=== PATIENT | female | born 1960 | race African-American/Black ===

== ENCOUNTER 2017-12-31 07:23 | Day surgery (SDC) | payer MEDICARE ==
[~2017-12-31] VITALS: Ht 160 cm; Wt 90.3 kg
[~2017-12-31 07:23] MED LIST: ALBU8I; ASPI325T PO; ATOR10 PO; ENAL20TA81 PO; HYDR10TA16 PO; LASI20TA PO; OMEP20TA PO; SOMA350T PO; XANA2TAB2 PO
[2017-12-31] MEDS ORDERED: IOHEXOL 350 MG/ML 100 ML BTL (for Cath Lab) OTHER ONE (07:24)
[2017-12-31] MEDS ORDERED: NS 1000P @30 MLS/HR (KVO) IV SCH (08:00)
[2017-12-31 08:12] LABS: AUTOMATED NEUTROPHIL # 3.8 TH/MM3 (1.8-7.7); BASOPHIL % 0.7 % (0.0-2.0); EOSINOPHIL # 0.1 TH/MM3 (0-0.4); HEMOGLOBIN 13.6 GM/DL (11.6-15.3); LYMPH % 29.8 % (9.0-44.0); LYMPHOCYTE # 1.9 TH/MM3 (1.0-4.8); MEAN CELL VOLUME 96.4 FL (80.0-100.0); MEAN CORPUSCULAR HGB CONC 33.2 % (32.0-36.0); MEAN PLATELET VOLUME 8.2 FL (7.0-11.0); MONO % 6.2 % (0.0-8.0); MONOCYTE # 0.4 TH/MM3 (0-0.9); NEUT % 61.3 % (16.0-70.0); PLATELET COUNT 195 TH/MM3 (150-450); RED BLOOD COUNT 4.25 MIL/MM3 (4.00-5.30); RED CELL DISTRIBUTION WIDTH 13.1 % (11.6-17.2); WHITE BLOOD COUNT 6.3 TH/MM3 (4.0-11.0)
[2017-12-31] MEDS ORDERED: SOMA350T PO (08:23)
[2017-12-31] MEDS ORDERED: ENAL20TA PO (08:23)
[2017-12-31] MEDS ORDERED: CLON0.1T PO (08:23)
[2017-12-31] MEDS ORDERED: VENTAER INH (08:23)
[2017-12-31] MEDS ORDERED: NIFE60TA58 PO (08:23)
[2017-12-31] MEDS ORDERED: METO-309 PO (08:23)
[2017-12-31] MEDS ORDERED: HYDR1SOL6 PO (08:23)
[2017-12-31] MEDS ORDERED: XANA2TAB2 PO (08:23)
[2017-12-31] MEDS ORDERED: IBUP-232 PO (08:23)
[2017-12-31] MEDS ORDERED: ASPI81TA23 PO (08:23)
[2017-12-31] MEDS ORDERED: LIPI10TA PO (08:23)
[2017-12-31] MEDS ORDERED: GUAI1LIQ13 PO (08:23)
[2017-12-31] MEDS ORDERED: HEPARIN-NS/PF FLUSH BAG 2,000 ML IV FLUSH ONE (08:25)
[2017-12-31] MEDS ORDERED: MIDAZOLAM HCL 2 MG/2 ML VIAL ONE (08:25)
[2017-12-31 08:26] VITALS: BP 151/92; PULSE 66; RESP 18; TEMP 97.9; O2SAT 99
[2017-12-31] MEDS ORDERED: VERAPAMIL HCL 5 MG/2 ML VIAL ONE (08:26)
[2017-12-31] MEDS ORDERED: HEPARIN SODIUM - IV 10,000 UNITS/10 ML VIAL ONE (08:26)
[2017-12-31] MEDS ORDERED: NITROGLYCERIN INJ 5 ML ONE (08:26)
[2017-12-31 08:33] LABS: BICARBONATE 30.2 MEQ/L (21.0-32.0); CALCIUM 9.1 MG/DL (8.5-10.1); CREATININE 0.78 MG/DL (0.50-1.00)
[2017-12-31] MEDS ORDERED: ONDANSETRON HCL 4 MG/2 ML VIAL ONE (09:12)
[2017-12-31] MEDS ORDERED: CLOPIDOGREL 300 MG TAB ONE (09:48)
--- NOTE | 2017-12-31 09:58 | CATHPROC ---
[facility] HIS Report Study Information Study Number Admission Scheduled Start Study Start [id number] Dec 31 2017 7:23AM 12/31/2017 Dec 31 2017 8:22AM [facility] Cardiac Catheterization Admit Source Facility Department Other [facility] - [facility] Assistant Navigator Physician and Clinical Staff Initial Vincent Mckeon Electrical High Tension Tester Tonie Ritchie RN Recorder Maya Huang,RT(R) Scrub Evelin SalgadoRT(R) (BS) Procedures Performed Procedure Location (Site) Vessel Name Coronary Angiograms LCA Left Coronary Coronary Angiograms RCA Right Coronary L Heart Cath PTCA DIAG Ost Left Coronary Wire insertion Radial (right) Radial Art. Equipment Time Veterinary Dentist Description Size Mfg Part Number Used/Scraped WIRE, WHISPER W/HYDROCOAT [id number] 09:19 [employer] 190CM Used 190CM *[id number] WIRE, WHISPER W/HYDROCOAT [id number] 09:19 [employer] 190CM Used 190CM *[id number] TRANSDUCER, TRUWAVE [id number] 08:36 [employer]UDE[employer] * Used [facility] *[id number] TIG 4.0 GUIDE CATHETER [id number] 09:19 [employer]ctive Systems SCIENTIFIC FR 6 Used CONVEY *[id number] 08:36 [email or web address] PACK, CCL CUSTOM * Used *[id number] 08:36 [email or web address] SUPPORT, ARTERIAL ADULT [id number] *[id number] Used [id number] 08:36 [employer] PACER PEN, SKIN DUAL W/ RULER * Used *[id number] BALLOON, 2.25 X 12MM NC [id number] 09:31 [employer] 12MM Used EUPHORA *[id number] 09:27 [employer] BALLOON, 2.5 X 10MM EUPHORA 10MM Used *[id number] BALLOON, 2.5 X 12MM NC [id number] 09:39 [employer] 12MM Used EUPHORA *[id number] 09:28 [employer] 30 BATOOL INDEFLATOR Used *[id number] BAND, RADIAL COMPRESSION TR [id number] 09:50 [employer] 24CM Used SHORT 24 *[id number] 08:36 [employer] WIRE, EXCHANGE 260CM 3MMJ 260CM Used *[id number] 08:36 NAMIC MANIFOLD, 4 PORT * Used *[id number] 08:36 NAM[employer] TUBING, HIGH PRESSURE 20" 20" Used *[id number] 08:36 [employer] OMNIPAQUE, 350 MG, 150ML 150ML [id number] Used [id number] 08:36 [employer],WARM AIR CCL * Used *[id number] CATHETER, FR5 OPTITORQUE [id number] 09:12 [employer] FR 5 Used RADIAL TIG 4.0 *[id number] SHEATH, FR6 TRANSRADIAL [id number] 08:36 [employer] FR 6 Used SLENDER 10CM *[id number] History: Current Medications Medication Dosage/Unit Route Frequency Last Date/Time Taken LIPITOR LOPRESSOR ASA CLONIDINE VASOTEC History: Allergies Allergy Reaction No Known Allergies History: Risk Factors Family History of Hypertension Dyslipidemia Previous TX Premature CAD Yes Yes No No Prior Valve Prior PCI Prior PCIDate Prior CABG Surgery No Yes 11/08/2011 No Cerebrovascular Peripheral Artery Chronic Lung On Dialysis Diabetes Disease Disease Disease No No Yes No No History: Symptoms/Diagnosis Selection Items Chest pain SOB History: Stress Tests Stress or Imaging Studies Performed Yes Standard Exercise Stress Test No Stress Echo No Stress Test SPECT Stress Test SPECT Result Stress Test SPECT Ischemia Risk/Extent Yes Positive Intermediate Stress Test CMR No Cardiac CTA Coronary Calcium Score No No History: Other Current Smoker Method Yes Cigarettes Labs Hgb (g/dl) Hct (%) WBC (l/cumm) Platelets (thousands) 11.60-17.00 35.00-51.00 4.00-11.00 150.00-450.00 13.6 41 6.3 195 Glucose (mg/dl) BUN (mg/dl) Creatinine (mg/dl) BUN:Creatinine (1:x) 74.00-106.00 7.00-18.00 0.50-1.30 10.00-20.00 80 8 0.7 11.4 Na (meq/l) K (meq/l) 136.00-145.00 3.50-5.10 143 3.9 CPK-MB (ng/ML) 0.50-3.60 Not Drawn Medication Medication Total Dose (Bolus/Oral) Medication Total Dosage/Unit 1% XYLOCAINE 5 mL FENTANYL 25 mcg HEPARIN 3000 units PLAVIX 600 mg RADIAL COCKTAIL 5 mL (Bolus) VERSED 1 mg ZOFRAN 4 mg Medications (Bolus/Oral) Medication Time Given Dosage/Unit Administered By Reason VERSED 12/31/2017 9:02:58 AM 1 mg Tonie Ritchie 1 mg VERSED given in lab by Tonie Ritchie RN in Left Antecubital via Peripheral IV. Ordered by Vincent Griffiths. 1% XYLOCAINE 12/31/2017 9:03:29 AM 5 mL Vincent Jaramillo 5 mL 1% XYLOCAINE given in lab by Vincent Jaramillo in Right Radial via Subcutaneous. Ordered by Vincent Jaramillo. Ntg 200mcg Verapamil 2.5mg Heparin RADIAL COCKTAIL 12/31/2017 9:07:58 AM 5 mL (Bolus) Vincent Jaramillo 2500U 5 mL (Bolus) RADIAL COCKTAIL given in lab by Vincent Jaramillo in Right Radial via Radial. Using [Solutio n Name]. Ordered by Vincent Jaramillo. Reason: Ntg 200mcg Verapamil 2.5mg Heparin 2500U. FENTANYL 12/31/2017 9:11:21 AM 25 mcg Tonie Ritchie 25 mcg FENTANYL given in lab by Tonie Ritchie RN in Left Antecubital via Peripheral IV. Ordered by Vincent Jaramillo. ZOFRAN 12/31/2017 9:13:28 AM 4 mg Tonie Ritchie 4 mg ZOFRAN given in lab by Tonie Ritchie RN in Left Antecubital via Central IV. Ordered by Vincent Jaramillo. HEPARIN 12/31/2017 9:19:06 AM 3000 units Tonie Ritchie 3000 units HEPARIN given in lab by Tonie Ritchie RN in Left Antecubital via Peripheral IV. Ordered by Vincent Jaramillo. PLAVIX 12/31/2017 9:51:12 AM 600 mg Tonie Ritchie 600 mg PLAVIX given in lab by Tonie Ritchie RN via Oral. Ordered by Vincent Jaramillo. Medication (Drip) Medication Time Given Dosage/Unit Concentration/Unit Diluent (ml) Solution IV Solutions 12/31/2017 8:26:15 AM 50 mL (IV) NaCl .9 IV Solutions given in lab by Tonie Ritchie RN in Left Antecubital via Peripheral IV. Pump/Drip Eduardo w using NaCl .9. Initial Case Assessment Cardiovascular HR Rhythm NIBP Chest Pain 75 SR 146/93 0 Edema Present Skin color Skin None Normal Warm Dry Circulatory - Right Pulses Dorsalis Pedis Femoral Radial 1 2 2 Scale (0,1,2,3,4,d) Scale (0,1,2,3,4,d) Neurological State Oriented to time-place- Alert Moves all extremities person Respiration - General Respiration Rate SpO2 (%) (B/min) 10 98 Chronological Log Time Study Chronological Log 8:25:03 Patient arrived via Bed. 8:25:07 Patient Name, D.O.B, / Armband Verified By R.N. 8:25:07 Consent signed by the physician and the patient and verified by the Ssn/Ssbn Assistant Navigator staff. 8:25:10 Pre-op and post- op instructions given; patient acknowledges understanding of instructions. 8:25:11 Verbal Stimulation=2 Physical Stimulation=2 Airway=2 Respiration=2 TOTAL=8. (0=absent, 1=li mited, 2=present) 8:25:34 Presedation assessment performed by Ssn/Ssbn Assistant Navigator RN. 8:25:35 Allens test performed on the right radial and ulnar artery. 8:25:38 Patient has been NPO for More than 6Hrs. 8:26:08 Skin Breakdown- none per pt 8:26:11 Patient Warmer Placed on the Table. 8:26:12 Jovanna Prominences Protected 8:26:14 A # 20 IV was noted in the Antecubital (left). Grade = 0 8:26:15 IV Solutions given in lab by Tonie Ritchie, RN in Left Antecubital via Peripheral IV. Pum p/Drip Flow using NaCl .9. 8:26:16 History and physical on the chart or being dictated. Assessment: Initial Case, HR=75 BPM, Rhythm=SR, AWLD=484/93 mmhg, Chest Pain=0, Edema=None, Col or=Normal, Skin = Warm, Dry 8:26:18 Right Pulses: Garry Ped=1, Femoral=2, Radial=2 Neurological: State=Alert, Ox3, BO Respiration: Resp=10 B/min, SpO2=98 % Vitals capture started with the following parameters, Patient=Adult, Interval=5 min, Initial Pr ewnjoj=220 mmHg, 8:27:57 Deflation Rate=5 mmHg, Cuff placed on Unknown 8:28:35 HR=75 bpm, HOFS=327/93 mmhg, SpO2=98.0 %, Resp=10 B/min, Pain=0, Jennifer=10, Hubbard=2 8:32:28 Reference ECG taken 8:33:34 HR=71 bpm, JMFP=629/89 mmhg, SpO2=98.0 %, Resp=9 B/min, Pain=0, Jennifer=10, Hubbard=2 8:36:50 Right Radial and right groin prepped with 2% chlorhexidine, and draped after a 3 min. waitin g time. 8:38:36 HR=68 bpm, BVOU=643/88 mmhg, SpO2=99.0 %, Resp=15 B/min, Pain=0, Jennifer=10, Hubbard=2 8:38:40 MD paged 8:39:00 MD responded 8:40:50 Pressure channel 1 [address] 8:42:51 Dr. Jaramillo responded with 10 minutes. 8:43:35 HR=70 bpm, FPZD=350/98 mmhg, SpO2=98.0 %, Resp=16 B/min, Pain=0, Jennifer=10, Hubbard=2 8:48:36 HR=75 bpm, IRPA=459/97 mmhg, SpO2=97.0 %, Resp=17 B/min, Pain=0, Jennifer=10, Hubbard=2 8:53:33 HR=74 bpm, EVRW=091/99 mmhg, SpO2=96.0 %, Resp=16 B/min, Pain=0, Jennifer=10, Hubbard=2 8:56:42 MD arrived. 8:59:21 HR=58 bpm, ZHJI=927/91 mmhg, SpO2=97.0 %, Resp=14 B/min, Pain=0, Jennifer=10, Hubbard=2 9:02:58 1 mg VERSED given in lab by Tonie Ritchie, AD in Left Antecubital via Peripheral IV. Order ed by Vincent Jaramillo. Time Out. Correct patient, correct procedure, correct physician, power injector not loaded with contrast with surgical 9:03:09 team present. Time Out Concurred by MD and individual staff in procedure. 9:03:25 Case Start 9:03:29 5 mL 1% XYLOCAINE given in lab by Vincent Jaramillo in Right Radial via Subcutaneous. Ordered by Vincent Jaramillo. 9:03:37 HR=60 bpm, CSWV=691/92 mmhg, SpO2=98.0 %, Resp=15 B/min, Pain=0, Jennifer=10, Hubbard=2 9:07:21 Access site was Right Radial Artery. A SHEATH, FR6 TRANSRADIAL SLENDER 10CM FR 6 was advanced into the Radial (right) using the Corinne pretty 9:07:39 technique. 5 mL (Bolus) RADIAL COCKTAIL given in lab by Vincent Jaramillo in Right Radial via Radial. Using [So lution Name]. Ordered 9:07:58 by Vincent Jaramillo. Reason: Ntg 200mcg Verapamil 2.5mg Heparin 2500U. A CATHETER, FR5 OPTITORQUE RADIAL TIG 4.0 FR 5 was advanced over a wire. OMNIPAQUE, 350 MG, 150M L 150ML 9:08:37 was used for injections. 9:08:42 HR=78 bpm, COSM=062/83 mmhg, SpO2=96.0 %, Resp=19 B/min, Pain=0, Jennifer=10, Hubbard=2 9:10:06 The LCA was injected and visualized at various angles. OMNIPAQUE, 350 MG, 150ML 150ML used. Recorded Pressure: Ao, HR=78, Condition=Condition 1 9:10:27 (Aorta) Ao 114/73/91 9:11:21 25 mcg FENTANYL given in lab by Tonie Ritchie RN in Left Antecubital via Peripheral IV. O rdered by Vincent Jaramillo. Recorded Pressure: LV, HR=81, Condition=Condition 1 9:12:05 (Left Ventricle) LV 138/7/8 Recorded Pressure: LV, Ao, HR=79, Condition=Condition 1 9:12:22 (Left Ventricle) LV 145/7/9, (Aorta) Ao 137/83/107 9:12:30 The RCA was injected and visualized at various angles. OMNIPAQUE, 350 MG, 150ML 150ML used. 9:13:28 4 mg ZOFRAN given in lab by Tonie Ritchie, AD in Left Antecubital via Central IV. Ordered by Vincent Jaramillo. 9:14:12 HR=87 bpm, ZSSZ=932/95 mmhg, SpO2=92.0 %, Resp=20 B/min, Pain=0, Jennifer=10, Hubbard=2 9:18:38 HR=77 bpm, CSLK=363/86 mmhg, SpO2=96 %, Resp=18 B/min, Pain=0, Jennifer=10, Hubbard=2 9:19:06 3000 units HEPARIN given in lab by Tonie Ritchie, RN in Left Antecubital via Peripheral IV . Ordered by Vincent Jaramillo. After removing the current catheter a TIG 4.0 GUIDE CATHETER CONVEY FR 6 was advanced over a WIR E, EXCHANGE 9:20:10 260CM 3MMJ 260CM. 9:22:10 A WIRE, WHISPER W/HYDROCOAT 190CM 190CM was inserted via Radial (right). 9:23:35 HR=74 bpm, IJFZ=897/90 mmhg, SpO2=93.0 %, Resp=18 B/min, Pain=0, Jennifer=10, Hubbard=2 9:23:54 Wire removed for reshaping. 9:24:18 A WIRE, WHISPER W/HYDROCOAT 190CM 190CM was inserted via Radial (right). 9:25:35 Interventional wire has crossed the lesion in the diag 9:27:18 Activated Clotting Time Drawn A BALLOON, 2.5 X 10MM EUPHORA 10MM was inserted over WIRE, WHISPER W/HYDROCOAT 190CM 190CM via the 9:27:24 Radial (right). A BALLOON, 2.5 X 10MM EUPHORA 10MM over a WIRE, WHISPER W/HYDROCOAT 190CM 190CM in the DIAG Ost was 9:28:05 inflated using a 30 BATOOL INDEFLATOR at 8 batool for 25 sec. 9:28:34 HR=74 bpm, LLIR=524/95 mmhg, SpO2=93 %, Resp=20 B/min A BALLOON, 2.5 X 10MM EUPHORA 10MM over a WIRE, WHISPER W/HYDROCOAT 190CM 190CM in the DIAG Ost was 9:29:01 inflated using a 30 BATOOL INDEFLATOR at 8 batool for 25 sec. 9:30:56 Balloon Removed. 9:31:16 ACT (Normal Range 90-180) = 278 A BALLOON, 2.25 X 12MM NC EUPHORA 12MM was inserted over WIRE, WHISPER W/HYDROCOAT 190CM 190CM via 9:32:04 the Radial (right). A BALLOON, 2.25 X 12MM NC EUPHORA 12MM over a WIRE, WHISPER W/HYDROCOAT 190CM 190CM in the DIAG Ost 9:32:48 was inflated using a 30 BATOOL INDEFLATOR at 12 batool for 50 sec. 9:33:37 HR=78 bpm, ELPB=079/94 mmhg, SpO2=95 %, Resp=19 B/min, Pain=0, Jennifer=10, Hubbard=2 A BALLOON, 2.25 X 12MM NC EUPHORA 12MM over a WIRE, WHISPER W/HYDROCOAT 190CM 190CM in the DIAG Ost 9:36:35 was inflated using a 30 BATOOL INDEFLATOR at 14 batool for 60 sec. 9:38:59 Balloon Removed. 9:39:21 HR=80 bpm, BFSL=716/96 mmhg, SpO2=91.0 %, Resp=17 B/min, Pain=0, Jennifer=10, Hubbard=2 A BALLOON, 2.5 X 12MM NC EUPHORA 12MM was inserted over WIRE, WHISPER W/HYDROCOAT 190CM 190CM v ia 9:41:45 the Radial (right). A BALLOON, 2.5 X 12MM NC EUPHORA 12MM over a WIRE, WHISPER W/HYDROCOAT 190CM 190CM in the DIAG Ost 9:41:52 was inflated using a 30 BATOOL INDEFLATOR at 12 batool for 55 sec. 9:43:41 HR=76 bpm, XNHB=646/93 mmhg, SpO2=92.0 %, Resp=18 B/min, Pain=0, Jennifer=10, Hubbard=2 9:47:04 Balloon Removed. 9:47:08 Wire removed 9:47:15 Catheter was removed 9:48:05 Case End 9:48:42 HR=75 bpm, ZARY=946/91 mmhg, SpO2=96.0 %, Resp=19 B/min Radial Compression Device Used. 15 mLs of air placed in BAND, RADIAL COMPRESSION TR SHORT 24 24 CM. Affected 9:49:39 hand 97 % O2 saturation. 9:50:36 No case complications noted. 9:50:37 Cine recording checked. 9:50:39 Holding Area notified of successful intervention. 9:50:42 Bedside Report will be given. 9:50:46 A Left Heart Cath was performed. 9:51:12 600 mg PLAVIX given in lab by Tonie Ritchie, AD via Oral. Ordered by Vincent Jaramillo. 9:53:39 HR=66 bpm, WXVT=671/82 mmhg, SpO2=98.0 %, Resp=21 B/min 9:57:08 Vitals capture stopped. 10:00:00 [facility] Study - Contrast Media Used In Study Contrast Total Opened (mL) Total Used (mL) Total Wasted (mL) Omnipaque 195 195 0 End Study - Maximum Contrast Load Max Contrast Load (mL) 645.1 End Study - Radiation Exposure Fluoro Time (minutes) 11.8 End Study - Patient Disposition Complications Transferred To Interventional Outcome No Telemetry Bed successful
[2017-12-31] MEDS ORDERED: SODIUM CHLOR 0.9% 1000 ML INJ 500 ML IV ONE (10:00)
--- NOTE | 2017-12-31 12:38 | MA ---
cc: Vincent Jaramillo MD DATE: 12/31/2017 INDICATIONS FOR PROCEDURE: The patient is having episodes of chest pain, possibly suggestive of ischemia, coronary artery disease. PROCEDURE: Left heart catheterization, angiogram, left ventriculogram, angioplasty of the diagonal artery. After obtaining fasting state, brought to the [employer]. Right radial area was stabilized with 2 sterile drapes. 1% Xylocaine was used to anesthetize the area. A 6-[place]i sheath was used to access the radial artery. [place] catheter to intubate left main, intubated the right coronary artery, performed left ventriculogram and pressure measurements. RESULTS: Coronary angiogram: Left main coronary artery is a large vessel, bifurcates in the LAD, left circumflex coronary artery. Left main has no significant disease. Left anterior descending coronary artery about 40% mid segment, coming out of that segment diagonal artery. Origin of the diagonal artery about 85%-90% stenosis. Left circumflex coronary artery and branches. Mild disease. Right coronary artery has a stent widely patent, dominant. Left ventriculogram ejection fraction estimated to be 55%. No pressure gradient across the aortic valve. Left ventricular end diastolic pressure of 12. Aortic pressure 150/70. Angioplasty of the diagonal artery: Heparin given. The left main successfully intubated using a [place] catheter, 6-[place]i guide. Whisper wire was used to cross the lesion. Heparin given beforehand. Multiple inflation with noncompliant balloon, 2.5 x 12 with residual stenosis less than 10%-15%. Excellent flow distally. Wires, balloons, catheter were taken out, sheath taken out. TR band was applied. The patient was sent in stable condition. No complications. POSTOPERATIVE DIAGNOSIS: Successful angioplasty of the diagonal artery. Patent stent in the right coronary artery. Preserved systolic performance of the left ventricle. Vincent Jaramillo MD CARLENE/TL/rr , 09:55 AM , 10:30 AM
== END 2017-12-31 16:49 | disposition home or self-care (01) ==
LOC: HDIC 07:23 → HDOC 07:23
PROVIDERS: ATTEND Internal Medicine Cardiovascular Disease
DX: I25.118 Atherosclerotic heart disease of native coronary artery with other forms of angina pectoris (principal); I10 Essential (primary) hypertension; E78.2 Mixed hyperlipidemia; I73.9 Peripheral vascular disease, unspecified; F17.200 Nicotine dependence, unspecified, uncomplicated; Z01.818 Encounter for other preprocedural examination
CPT/HCPCS: 80048; 85002; 85025; 92920; 93458; 99152; 99153; C1725; C1769; C1887; C1893; J1644; J2250; J2405; J3010; Q9967